=== PATIENT | male | born 2000 | race Caucasian/White ===

== ENCOUNTER 2023-11-26 22:05 | Emergency (ER) | payer SELFPAY ==
[~2023-11-26] VITALS: Ht 175.3 cm; Wt 73.0 kg
[2023-11-26 22:10] VITALS: TEMP 98.3; O2SAT 98
[2023-11-26] MEDS ORDERED: P50 MT (23:15)
[2023-11-26] MEDS ORDERED: CEPH500C2 MT (23:15)
[2023-11-26] MEDS ORDERED: FAMO-135 MT (23:15)
[2023-11-26] MEDS ORDERED: HYDR453.4 TP (23:15)
[2023-11-26] MEDS ORDERED: DIPH25CA83 MT (23:15)
[2023-11-27 00:04] VITALS: BP 145/82; PULSE 61; RESP 18
[2023-11-27] MEDS: HYDROCODONE/ACETAMINOPHEN 5/325MG TABLET PO ONE (00:04)
[2023-11-27] MEDS: FAMOTIDINE 20MG TABLET PO ONE (00:04)
[2023-11-27] MEDS: PREDNISONE 20MG TABLET PO ONE (00:04)
== END 2023-11-27 | disposition home or self-care (01) ==
LOC: ER 22:05
DX: L25.9 Unspecified contact dermatitis, unspecified cause (principal)
CPT/HCPCS: 99284; 73590; J7512